=== PATIENT | female | born 2000 | race African-American/Black ===

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

== ENCOUNTER 2022-03-07 12:32 | Emergency (ER) | payer BC | END 2022-03-07 12:52 | disposition home or self-care (01) | LOC: ERS 12:32 | DX: Z00.129 Encounter for routine child health examination without abnormal findings (principal); F17.290 Nicotine dependence, other tobacco product, uncomplicated | CPT/HCPCS: 99281 ==

== ENCOUNTER 2022-03-09 11:58 | Emergency (ER) | payer BC | END 2022-03-09 14:03 | disposition home or self-care (01) | LOC: ERS 11:58 | DX: R07.9 Chest pain, unspecified (principal); F17.290 Nicotine dependence, other tobacco product, uncomplicated | CPT/HCPCS: 71045; 93005; 94760 ==